=== PATIENT | male | born 1965 | race Caucasian/White ===

== ENCOUNTER → 2018-03-14 | Outpatient (CLI) | payer OTHER ==
[~2018-03-14] MED LIST: MPR22T TOP; MTF500T PO; NAPR-243 PO; OXYC-12 PO; STATIN; SULF1TAB35 PO
--- NOTE | 2018-03-14 18:04 | Diagnostic Imaging Report ---
PROCEDURE: US Bilateral lower extremity arterial. TECHNIQUE: Multiple real-time grayscale images are obtained through both lower extremity arterial systems with color Doppler imaging and color Doppler spectral analysis. INDICATION: Bilateral leg pain. FINDINGS: There are no prior studies available for comparison. There are monophasic waveforms throughout the arterial system of the right lower extremity. There is no abrupt alteration of the velocities, but the monophasic waveforms do suggest that there may be a stenosis proximal to the common femoral artery. On the left, there are elevated velocities in the common femoral arteries and profunda. Triphasic waveforms are seen in the common femoral and superficial femoral arteries, but these waveforms change to monophasic in the midportion of the superficial femoral artery. There is also significant decrease in the velocity between the common femoral and superficial femoral artery and most likely, there is a hemodynamically significant stenosis in this region. IMPRESSION: There is diminished arterial blood flow to both lower extremities. This may be related to aortoiliac disease. There also appears to be a hemodynamically significant stenosis of the superficial femoral artery on the left. If further imaging is desired, then CTA of the aorta with bilateral runoffs will be recommended. Dictated by: Dictated on workstation # [id number]
== END ==
LOC: RAD 13:49
PROVIDERS: ATTEND Internal Medicine
DX: I73.9 Peripheral vascular disease, unspecified (principal)
CPT/HCPCS: 93925

== ENCOUNTER → 2018-05-14 | Outpatient (CLI) | payer OTHER ==
[2018-05-14 13:15] LABS: ALBUMIN 4.2 GM/DL (3.2-4.5); BUN/CREATININE RATIO 14; CALCIUM 9.3 MG/DL (8.5-10.1); CARBON DIOXIDE 22 MMOL/L (21-32); CHLORIDE 101 MMOL/L (98-107); CREATININE SERUM 0.88 MG/DL (0.60-1.30); GFR ESTIMATED > 60; GLUCOSE 198 MG/DL (70-105); POTASSIUM 4.7 MMOL/L (3.6-5.0); SODIUM 135 MMOL/L (135-145)
== END ==
LOC: LAB 12:44
PROVIDERS: ATTEND Thoracic Surgery (Cardiothoracic Vascular Surgery)
DX: I70.219 Atherosclerosis of native arteries of extremities with intermittent claudication, unspecified extremity (principal)
CPT/HCPCS: 36415; 80069

== ENCOUNTER → 2018-05-15 | Outpatient (CLI) | payer OTHER ==
[~2018-05-15] MED LIST changes: +CATHETER FLUSH 10 ML SYR IV PRN; +IOHEXOL 350 MG/ML 150 ML (OMNIPAQUE 350) VIAL IV ONE; +NS 100 ML (IVPB) BAG IV ONE; +RECEIVED CONTRAST (Hold Metformin) IV SCH
--- NOTE | 2018-05-15 19:09 | Diagnostic Imaging Report ---
INDICATION: Atherosclerosis. EXAMINATION: Lung bases are clear. The liver appears normal. Gallbladder is present. Pancreas is normal. Spleen is not enlarged. Kidneys and adrenals appear normal. FINDINGS: There is calcific atherosclerosis of the aorta but no aneurysm, stenosis or dissection. Celiac and superior mesenteric arteries are widely patent. The renal arteries are widely patent. Inferior mesenteric arteries are widely patent. There is atherosclerotic calcification of the common iliac arteries and extra iliac arteries but there is no occlusion, stenosis or dissection. There is a right inguinal hernia. Urinary bladder wall appears thickened. Prostate is not enlarged. Seminal vesicles appear normal. There is no intraperitoneal free air or free fluid. Colon is unremarkable. Small bowel is not dilated. Common femoral arteries are widely patent. Profunda femora are widely patent. Superficial femoral arteries have some scattered atherosclerotic plaque but no stenosis or occlusion. Popliteal arteries are widely patent and all three runoff vessels are patent. IMPRESSION: There is some atherosclerotic change in the aorta and branches. There is no occlusion or hemodynamically significant stenosis. Dictated by: Dictated on workstation # [id number]
== END ==
LOC: RAD 16:36
PROVIDERS: ATTEND Nurse Practitioner
DX: I70.0 Atherosclerosis of aorta (principal); I70.219 Atherosclerosis of native arteries of extremities with intermittent claudication, unspecified extremity; E11.9 Type 2 diabetes mellitus without complications
CPT/HCPCS: 75635

== ENCOUNTER → 2020-01-05 | Outpatient (CLI) | payer OTHER ==
[~2020-01-05] MED LIST changes: -CATHETER FLUSH 10 ML SYR IV PRN; -IOHEXOL 350 MG/ML 150 ML (OMNIPAQUE 350) VIAL IV ONE; -NS 100 ML (IVPB) BAG IV ONE; -RECEIVED CONTRAST (Hold Metformin) IV SCH
--- NOTE | 2020-01-05 11:11 | Diagnostic Imaging Report ---
PROCEDURE: MRI lumbar spine. TECHNIQUE: Multiplanar, multisequence MRI of the lumbar spine was performed without contrast. INDICATION: Chronic low back pain with prior history of lumbar spine surgery. COMPARISON: Correlation is made with the prior MRI of the lumbar spine from 04/21/2015. FINDINGS: The curvature and alignment of the lumbar spine are normal. The vertebral body heights are maintained. The marrow signal intensity is unremarkable. No geographic marrow lesion is seen. There is degenerative disc disease at the L4-L5 level with disc space narrowing and desiccation. The remaining lumbar discs show fairly normal hydration. The conus is unremarkable at the L1 level. T12-L1: The central canal is patent. The neuroforamina are patent. L1-L2: There is some ligamentous thickening and facet change. The central canal remains widely patent. The neuroforamina are patent. L2-L3: Ligamentous thickening and facet changes are noted with a broad-based disc/osteophyte complex. The central canal is patent. There is mild bilateral neuroforaminal narrowing. L3-L4: There is some ligamentous thickening and facet change but the central canal is widely patent. The neuroforamina are patent. L4-L5: A broad-based right posterolateral disc/osteophyte complex indents the ventral thecal sac, similar to the prior exam. This does produce significant right lateral recess narrowing and also results in fairly significant right-sided neuroforaminal stenosis. The left neural foramen is patent. L5-S1: The central canal is patent. The neuroforamina are patent. IMPRESSION: L4-L5 degenerative disc disease. There continues to be a broad-based disc/osteophyte complex, asymmetric to the right, producing significant right-sided lateral recess and neuroforaminal stenosis as well as mild to moderate central canal stenosis. Dictated by: Dictated on workstation # [id number]
== END ==
LOC: RAD 09:30
PROVIDERS: ATTEND Internal Medicine
DX: M51.36 Other intervertebral disc degeneration, lumbar region (principal); M48.061 Spinal stenosis, lumbar region without neurogenic claudication
CPT/HCPCS: 72148

== ENCOUNTER → 2020-04-19 | Outpatient (CLI) | payer OTHER ==
[2020-04-19 15:28] LABS: BASOPHILS % (AUTO) 0 % (0-10); EOSINOPHILS # (AUTO) 0.3 10^3/uL (0.0-0.3); EOSINOPHILS % (AUTO) 3 % (0-10); HEMATOCRIT 42 % (40-54); HEMOGLOBIN 14.3 g/dL (13.3-17.7); LYMPHOCYTES # (AUTO) 2.8 10^3/uL (1.0-4.0); LYMPHOCYTES % (AUTO) 31 % (12-44); MEAN CORPUSCULAR HEMOGLOBIN 32 pg (25-34); MEAN CORPUSCULAR HGB CONC 34 g/dL (32-36); MEAN CORPUSCULAR VOLUME 94 fL (80-99); MEAN PLATELET VOLUME 9.8 fL (9.0-12.2); MONOCYTES # (AUTO) 0.7 10^3/uL (0.0-1.0); MONOCYTES % (AUTO) 8 % (0-12); NEUTROPHILS # (AUTO) 5.3 10^3/uL (1.8-7.8); NEUTROPHILS % (AUTO) 58 % (42-75); PLATELET COUNT 247 10^3/uL (130-400); WHITE BLOOD COUNT 9.1 10^3/uL (4.3-11.0)
[2020-04-19 15:37] LABS: ALBUMIN 4.1 GM/DL (3.2-4.5); CHLORIDE 100 MMOL/L (98-107); POTASSIUM 4.5 MMOL/L (3.6-5.0); SODIUM 136 MMOL/L (135-145)
[2020-04-19 15:39] LABS: GLUCOSE 123 MG/DL (70-105); TOTAL PROTEIN 6.8 GM/DL (6.4-8.2)
[2020-04-19 15:41] LABS: BILIRUBIN,TOTAL 0.2 MG/DL (0.1-1.0); CARBON DIOXIDE 27 MMOL/L (21-32)
[2020-04-19 15:41] LABS: BILIRUBIN,URINE NEGATIVE (NEGATIVE); CLARITY,URINE CLEAR; COLOR,URINE YELLOW; GLUCOSE, URINE (UA) NEGATIVE (NEGATIVE); KETONES,URINE NEGATIVE (NEGATIVE); LEUKOCYTE ESTERASE ,URINE 1+ (NEGATIVE); NITRITE,URINE NEGATIVE (NEGATIVE); PROTEIN,URINE NEGATIVE (NEGATIVE)
[2020-04-19 15:43] LABS: ALKALINE PHOSPHATASE 60 U/L (40-136); CREATININE SERUM 0.82 MG/DL (0.60-1.30); GFR ESTIMATED > 60
[2020-04-19 15:44] LABS: BUN/CREATININE RATIO 15
[2020-04-19 15:46] LABS: ALANINE AMINOTRANSFERASE 29 U/L (0-55)
[2020-04-19 15:54] LABS: BACTERIA,URINE TRACE /HPF
--- NOTE | 2020-04-19 16:40 | Diagnostic Imaging Report ---
EXAMINATION: Chest 2 view HISTORY: Preop clearance. COMPARISON: 07/10/2013. FINDINGS: The lung volumes are normal. No focal consolidation is seen. No large pleural effusion or pneumothorax is seen. The cardiomediastinal silhouette is normal in size and contour. No acute osseous abnormality is seen. IMPRESSION: 1. No acute pleuroparenchymal process. Dictated by: Dictated on workstation # [id number]
== END ==
LOC: CARD 15:00
PROVIDERS: ATTEND Thoracic Surgery (Cardiothoracic Vascular Surgery)
DX: Z01.810 Encounter for preprocedural cardiovascular examination (principal); I70.213 Atherosclerosis of native arteries of extremities with intermittent claudication, bilateral legs
CPT/HCPCS: 36415; 71046; 80053; 81000; 85025; 93005

== ENCOUNTER → 2021-08-23 | Outpatient (CLI) | payer MEDICAID, OTHER ==
[2021-08-23 12:16] LABS: BASOPHILS # (AUTO) 0.1 10^3/uL (0.0-0.1); BASOPHILS % (AUTO) 1 % (0-10); EOSINOPHILS # (AUTO) 0.2 10^3/uL (0.0-0.3); EOSINOPHILS % (AUTO) 2 % (0-10); HEMATOCRIT 41 % (40-54); HEMOGLOBIN 13.8 g/dL (13.3-17.7); LYMPHOCYTES # (AUTO) 3.4 10^3/uL (1.0-4.0); LYMPHOCYTES % (AUTO) 35 % (12-44); MEAN CORPUSCULAR HEMOGLOBIN 31 pg (25-34); MEAN CORPUSCULAR HGB CONC 34 g/dL (32-36); MEAN CORPUSCULAR VOLUME 93 fL (80-99); MEAN PLATELET VOLUME 9.6 fL (9.0-12.2); MONOCYTES # (AUTO) 0.8 10^3/uL (0.0-1.0); MONOCYTES % (AUTO) 8 % (0-12); NEUTROPHILS # (AUTO) 5.3 10^3/uL (1.8-7.8); NEUTROPHILS % (AUTO) 54 % (42-75); PLATELET COUNT 294 10^3/uL (130-400); WHITE BLOOD COUNT 9.8 10^3/uL (4.3-11.0)
[2021-08-23 12:20] LABS: BILIRUBIN,URINE NEGATIVE (NEGATIVE); CLARITY,URINE CLEAR; COLOR,URINE YELLOW; GLUCOSE, URINE (UA) NEGATIVE (NEGATIVE); KETONES,URINE NEGATIVE (NEGATIVE); LEUKOCYTE ESTERASE ,URINE 1+ (NEGATIVE); NITRITE,URINE NEGATIVE (NEGATIVE); PH,URINE 5.5 (5-9); PROTEIN,URINE NEGATIVE (NEGATIVE)
[2021-08-23 12:29] LABS: BACTERIA,URINE NEGATIVE /HPF; SQUAMOUS EPITHELIAL CELL,UR 0-2 /HPF; TRICHOMONAS,URINE FEW /HPF
[2021-08-23 12:35] LABS: ALBUMIN 4.2 GM/DL (3.2-4.5); POTASSIUM 4.1 MMOL/L (3.6-5.0)
[2021-08-23 12:37] LABS: CALCIUM 9.6 MG/DL (8.5-10.1)
[2021-08-23 12:38] LABS: TOTAL PROTEIN 7.2 GM/DL (6.4-8.2)
[2021-08-23 12:40] LABS: BILIRUBIN,TOTAL 0.4 MG/DL (0.1-1.0)
[2021-08-23 12:41] LABS: CREATININE SERUM 0.76 MG/DL (0.60-1.30)
== END ==
LOC: LAB 11:46
PROVIDERS: ATTEND Thoracic Surgery (Cardiothoracic Vascular Surgery)
DX: Z01.812 Encounter for preprocedural laboratory examination (principal); I70.219 Atherosclerosis of native arteries of extremities with intermittent claudication, unspecified extremity
CPT/HCPCS: 36415; 80053; 81000; 85025

== ENCOUNTER → 2021-08-26 | Outpatient (CLI) | LOC: LABNPT 08:00 → MERGE 08:00 | DX: Z53.9 Procedure and treatment not carried out, unspecified reason (principal) ==

== ENCOUNTER → 2021-08-26 | Outpatient (CLI) | payer MEDICAID | LOC: LABNPT 11:33 | PROVIDERS: ATTEND Thoracic Surgery (Cardiothoracic Vascular Surgery) | DX: Z20.822 Contact with and (suspected) exposure to COVID-19 (principal) | CPT/HCPCS: 87636 ==

== ENCOUNTER → 2022-02-06 | Outpatient (CLI) | payer MEDICAID ==
--- NOTE | 2022-02-06 18:16 | Diagnostic Imaging Report ---
PROCEDURE: US Bilateral lower extremity arterial. TECHNIQUE: Multiple real-time grayscale images are obtained through both lower extremity arterial systems with color Doppler imaging and color Doppler spectral analysis. INDICATION: Atherosclerotic disease of the lower extremities. COMPARISON: 03/14/2018 FINDINGS: Right lower extremity arterial system: There is primarily monophasic flow from the common femoral through to the popliteal artery. Several areas of diminished peak systolic velocity are also present. Despite this, grayscale and color flow images show no areas of focal hemodynamically significant stenosis by NASCET criteria. Monophasic flow is also identified throughout the right calf arteries. Proximal anterior tibial artery is not well visualized. Its patency cannot be confirmed. Left lower extremity arterial system: There is triphasic waveform from the common femoral through to the popliteal artery. Scattered echogenic atherosclerotic disease is noted, but by NASCET criteria, there is no focal significant stenosis. Proximal posterior tibial artery is also not well-visualized on the left. There is otherwise primarily monophasic flow within the left calf arteries. Note is also made of arrhythmia. IMPRESSION: 1. There is predominant monophasic flow in the right lower extremity arterial system. While this may relate to moderate diffuse atherosclerotic disease, obscuring the stenosis within the right common or external iliac arteries show also be a consideration. Correlation with CT or conventional angiogram is advised. 2. No evidence of focal significant stenosis from the common femoral to the popliteal arteries on either side. 3. Probable small vessel disease of the bilateral calves. 4. Arrhythmia. Dictated by: Dictated on workstation # [id number]
== END ==
LOC: RAD 10:45
PROVIDERS: ATTEND Nurse Practitioner
DX: I49.9 Cardiac arrhythmia, unspecified (principal); I70.213 Atherosclerosis of native arteries of extremities with intermittent claudication, bilateral legs
CPT/HCPCS: 93925

== ENCOUNTER → 2022-06-19 | Outpatient (CLI) | payer MEDICAID ==
[2022-06-19 11:44] LABS: BASOPHILS % (AUTO) 0 % (0-10); EOSINOPHILS # (AUTO) 0.2 10^3/uL (0.0-0.3); EOSINOPHILS % (AUTO) 2 % (0-10); HEMATOCRIT 39 % (40-54); HEMOGLOBIN 12.9 g/dL (13.3-17.7); LYMPHOCYTES # (AUTO) 2.3 10^3/uL (1.0-4.0); LYMPHOCYTES % (AUTO) 20 % (12-44); MEAN CORPUSCULAR HEMOGLOBIN 31 pg (25-34); MEAN CORPUSCULAR HGB CONC 33 g/dL (32-36); MEAN CORPUSCULAR VOLUME 92 fL (80-99); MEAN PLATELET VOLUME 10.3 fL (9.0-12.2); MONOCYTES # (AUTO) 0.9 10^3/uL (0.0-1.0); MONOCYTES % (AUTO) 8 % (0-12); NEUTROPHILS % (AUTO) 70 % (42-75); PLATELET COUNT 256 10^3/uL (130-400); WHITE BLOOD COUNT 11.5 10^3/uL (4.3-11.0)
[2022-06-19 12:00] LABS: ALBUMIN 4.1 GM/DL (3.2-4.5); BILIRUBIN,TOTAL 0.4 MG/DL (0.1-1.0); CALCIUM 9.7 MG/DL (8.5-10.1); CREATININE SERUM 0.83 MG/DL (0.60-1.30); POTASSIUM 4.3 MMOL/L (3.6-5.0); TOTAL PROTEIN 7.5 GM/DL (6.4-8.2)
[2022-06-19 12:06] LABS: ERYTHROCYTE SEDIMENTATION RATE 22 MM/HR (0-30)
== END ==
LOC: WOUNDCARE 10:12
PROVIDERS: ATTEND Family Medicine
DX: E11.621 Type 2 diabetes mellitus with foot ulcer (principal); E11.65 Type 2 diabetes mellitus with hyperglycemia; E11.40 Type 2 diabetes mellitus with diabetic neuropathy, unspecified; L97.422 Non-pressure chronic ulcer of left heel and midfoot with fat layer exposed; L03.116 Cellulitis of left lower limb; I70.244 Atherosclerosis of native arteries of left leg with ulceration of heel and midfoot; T65.292A Toxic effect of other tobacco and nicotine, intentional self-harm, initial encounter; I89.0 Lymphedema, not elsewhere classified; E66.01 Morbid (severe) obesity due to excess calories; Z68.39 Body mass index [BMI] 39.0-39.9, adult
CPT/HCPCS: 11042; 11045; 80053; 85025; 85652; 86141; 87070; 87077; 87205; A6260; G0463; 36415; 87185

== ENCOUNTER → 2022-07-03 | Outpatient (CLI) | payer MEDICAID ==
--- NOTE | 2022-07-03 17:35 | Diagnostic Imaging Report ---
HISTORY: Osteomyelitis of the left heel TECHNIQUE: Two views of the left calcaneus. COMPARISON: None. FINDINGS: There is a moderate-sized plantar calcaneal enthesophyte and a small posterior calcaneal enthesophyte. No acute fracture is seen in the calcaneus. Alignment is normal. Joint space is preserved. There is subtle cortical indistinction at the posterolateral aspect of the calcaneus. IMPRESSION: 1. Subtle cortical indistinction at the posterolateral calcaneus, could represent osteomyelitis. Please correlate with clinical findings, and if indicated consider MRI. Dictated by: Dictated on workstation # [id number]
== END ==
LOC: WOUNDCARE 09:31
PROVIDERS: ATTEND Family Medicine
DX: L97.422 Non-pressure chronic ulcer of left heel and midfoot with fat layer exposed (principal); E11.621 Type 2 diabetes mellitus with foot ulcer; E11.65 Type 2 diabetes mellitus with hyperglycemia; E11.40 Type 2 diabetes mellitus with diabetic neuropathy, unspecified; I70.244 Atherosclerosis of native arteries of left leg with ulceration of heel and midfoot; T65.292A Toxic effect of other tobacco and nicotine, intentional self-harm, initial encounter; I89.0 Lymphedema, not elsewhere classified; E66.01 Morbid (severe) obesity due to excess calories; A49.9 Bacterial infection, unspecified; E11.52 Type 2 diabetes mellitus with diabetic peripheral angiopathy with gangrene; Z68.39 Body mass index [BMI] 39.0-39.9, adult
CPT/HCPCS: 73650; G0463; 99212

== ENCOUNTER → 2022-07-10 | Outpatient (CLI) | payer MEDICAID | LOC: WOUNDCARE 09:29 | PROVIDERS: ATTEND Family Medicine | DX: E11.621 Type 2 diabetes mellitus with foot ulcer (principal); E11.65 Type 2 diabetes mellitus with hyperglycemia; E11.40 Type 2 diabetes mellitus with diabetic neuropathy, unspecified; I70.244 Atherosclerosis of native arteries of left leg with ulceration of heel and midfoot; T65.222A Toxic effect of tobacco cigarettes, intentional self-harm, initial encounter; I89.0 Lymphedema, not elsewhere classified; L97.422 Non-pressure chronic ulcer of left heel and midfoot with fat layer exposed; E66.01 Morbid (severe) obesity due to excess calories; Z68.39 Body mass index [BMI] 39.0-39.9, adult; A49.9 Bacterial infection, unspecified; E11.52 Type 2 diabetes mellitus with diabetic peripheral angiopathy with gangrene | CPT/HCPCS: 11042; 87070; 87205; A6260; G0463 ==

== ENCOUNTER → 2022-07-14 | Outpatient (CLI) | payer MEDICAID ==
[~2022-07-14] MED LIST changes: +GADOTERATE 0.5 MMOL/ML (CLARISCAN) 20 ML VIAL IV ONE; +GADOTERATE 0.5 MMOL/ML (CLARISCAN) 5 ML VIAL IV ONE
--- NOTE | 2022-07-14 10:05 | Diagnostic Imaging Report ---
EXAMINATION: Magnetic resonance imaging of the left ankle without and with intravenous contrast. DATE: July 14, 2022. COMPARISON: None. HISTORY: 56-year-old male, ulcer at the posterior aspect of the left heel. Evaluation for osteomyelitis and/or abscess. TECHNIQUE: Magnetic Resonance Imaging sequences were performed of the ankle without and with intravenous contrast. FINDINGS: TENDONS AND LIGAMENTS: The Achilles tendon is unremarkable. The posterior flexor tendons - tibialis posterior, flexor digitorum longus, flexor hallucis longus - are intact. The peroneal tendons - peroneus longus and peroneus brevis - are intact. The anterior extensor tendons - tibialis anterior, extensor hallucis longus and extensor digitorum longus tendons - are intact. The anterior and posterior syndesmotic ligaments are intact. The anterior talofibular, posterior talofibular, calcaneofibular and deltoid ligaments are intact. The plantar fascia is intact. JOINTS: The ankle mortise is intact. The subtalar and visualized joints of the mid-foot are intact. BONE: There is a type II os navicularis without evidence of abnormal motion. There is minimal edema-like signal in the subcortical bone of the posterior calcaneus without T1 marrow signal loss or bone destruction. There is additional low level edema in the calcaneus which may relate to stress related marrow changes. There is a visible fracture line. The talar dome is intact. BURSAE AND SOFT TISSUES: There is a large area of nonenhancing soft tissue superficial to the posterior aspect of the calcaneus with a craniocaudal extent of 6.4 cm, anterior to posterior extent of 2.0 cm, and a transverse extent of approximately 3.8 cm. This may relate to devascularized or devitalized tissue. The nonenhancing tissue does directly contact bone. There is minimal subcortical edema in the posterior calcaneus. There is no identified focal fluid collection or abscess. IMPRESSION: 1. Large area of nonenhancing subcutaneous tissues superficial to the posterior calcaneus which may relate to devascularize or devitalized tissue. No identified focal fluid collection or abscess. 2. Mild subcortical edema in the posterior calcaneus without T1 marrow signal loss or bone destruction to specifically diagnose osteomyelitis at this time. 3. Intact tendons without evidence of tenosynovitis. 4. Unremarkable joint assessment. Dictated by: Dictated on workstation # [id number]
== END ==
LOC: RAD 08:45
PROVIDERS: ATTEND Family Medicine
DX: L97.422 Non-pressure chronic ulcer of left heel and midfoot with fat layer exposed (principal); E11.621 Type 2 diabetes mellitus with foot ulcer; E11.65 Type 2 diabetes mellitus with hyperglycemia; E11.40 Type 2 diabetes mellitus with diabetic neuropathy, unspecified; L03.116 Cellulitis of left lower limb; I70.244 Atherosclerosis of native arteries of left leg with ulceration of heel and midfoot; T65.292A Toxic effect of other tobacco and nicotine, intentional self-harm, initial encounter; I89.0 Lymphedema, not elsewhere classified; E66.01 Morbid (severe) obesity due to excess calories; Z68.39 Body mass index [BMI] 39.0-39.9, adult
CPT/HCPCS: 73720

== ENCOUNTER → 2022-07-17 | Outpatient (CLI) | payer MEDICAID ==
[~2022-07-17] MED LIST changes: -GADOTERATE 0.5 MMOL/ML (CLARISCAN) 20 ML VIAL IV ONE; -GADOTERATE 0.5 MMOL/ML (CLARISCAN) 5 ML VIAL IV ONE
== END ==
LOC: WOUNDCARE 09:19
PROVIDERS: ATTEND Family Medicine
DX: L97.422 Non-pressure chronic ulcer of left heel and midfoot with fat layer exposed (principal); E11.621 Type 2 diabetes mellitus with foot ulcer; E11.65 Type 2 diabetes mellitus with hyperglycemia; E11.40 Type 2 diabetes mellitus with diabetic neuropathy, unspecified; I70.244 Atherosclerosis of native arteries of left leg with ulceration of heel and midfoot; T65.292A Toxic effect of other tobacco and nicotine, intentional self-harm, initial encounter; I89.0 Lymphedema, not elsewhere classified; E66.01 Morbid (severe) obesity due to excess calories; Z68.39 Body mass index [BMI] 39.0-39.9, adult; A49.9 Bacterial infection, unspecified; E11.52 Type 2 diabetes mellitus with diabetic peripheral angiopathy with gangrene
CPT/HCPCS: A6260; G0463; 99212

== ENCOUNTER 2022-07-20 12:20 | Outpatient (CLI) | payer MEDICAID ==
[~2022-07-20] VITALS: Ht 185.4 cm; Wt 130.6 kg
[2022-07-20] MEDS ORDERED: INSU100I55 SQ (12:58)
[2022-07-20] MEDS ORDERED: LISI20TA26 PO (13:32)
[2022-07-20] MEDS ORDERED: GLIP5TAB13 PO (13:32)
[2022-07-20] MEDS ORDERED: BACL20TA PO (13:32)
[2022-07-20] MEDS ORDERED: FURO40TA4 PO (13:32)
[2022-07-20] MEDS ORDERED: PROM25TA14 PO (13:32)
[2022-07-20] MEDS ORDERED: OXYC-556 PO (13:32)
[2022-07-20] MEDS ORDERED: ATOR40TA70 PO (13:32)
[2022-07-20] MEDS ORDERED: INSU100I88 SQ (13:32)
[2022-07-20] MEDS ORDERED: ROPI1TAB PO (13:32)
[2022-07-20] MEDS ORDERED: LIRA0.6P SQ (13:32)
[2022-07-20] MEDS ORDERED: LEVO750T PO (13:32)
[2022-07-20] MEDS ORDERED: POTA-177 PO (13:32)
[2022-07-20] MEDS ORDERED: CLOP75TA28 PO (13:32)
[2022-07-20] MEDS ORDERED: PREG150C46 PO (13:32)
== END 2022-07-20 13:41 | disposition home or self-care (01) ==
LOC: PREOP 12:20
PROVIDERS: ATTEND Surgery
DX: Z01.818 Encounter for other preprocedural examination (principal); E11.621 Type 2 diabetes mellitus with foot ulcer

== ENCOUNTER 2022-07-24 10:38 | Day surgery (SDC) | payer MEDICAID ==
[~2022-07-24] VITALS: Ht 185.4 cm; Wt 130.6 kg
[2022-07-24] VITALS (11 sets, daily range): BP systolic 113–140; BP diastolic 64–84
[~2022-07-24 10:38] MED LIST changes: +ATOR40TA70 PO; +BACL20TA PO; +CLOP75TA28 PO; +FURO40TA4 PO; +GLIP5TAB13 PO; +INSU100I55 SQ; +INSU100I88 SQ; +LEVO750T PO; +LIRA0.6P SQ; +LISI20TA26 PO; +OXYC-556 PO; +POTA-177 PO; +PREG150C46 PO; +PROM25TA14 PO; +ROPI1TAB PO
[2022-07-24] MEDS ORDERED: ceFAZolin INJECTION 2,000 MG in NS (IVPB) 50 ML IV ONE (10:45)
[2022-07-24] MEDS ORDERED: LACTATED RINGERS 1,000 ML IV PRN (10:45)
--- NOTE | 2022-07-24 11:28 | Progress Note-Pre Operative ---
Pre-Operative Progress Note Date H&P Reviewed: Jul 24, 2022 Time H&P Reviewed: 11:27 History & Physical: H&P Reviewed, Patient Examed, No changes noted Pre-Operative Diagnosis: LEFT HEEL/FOOT ULCER ABENA VERDUZCO DO Jul 24, 2022 11:28
[2022-07-24] MEDS ORDERED: proPOfol 200 MG/20 ML (DIPRIVAN) VIAL IV ONE (11:43)
[2022-07-24] MEDS ORDERED: LIDOCAINE PF 2% 5 ML (XYLOCAINE) VIAL ONE (11:43)
[2022-07-24] MEDS ORDERED: fentaNYL INJ 100 MCG/2 ML AMP ONE (11:43)
[2022-07-24] MEDS ORDERED: MIDAZOLAM 2 MG/2 ML (VERSED) VIAL ONE (11:44)
[2022-07-24] MEDS ORDERED: ONDANSETRON 4 MG/2 ML (SDV) Z0FRAN ONE (11:57)
[2022-07-24] MEDS ORDERED: SEVOFLURANE (ULTANE) 15 ML INHAL SOLN ONE (12:18)
[2022-07-24] MEDS ORDERED: ONDANSETRON 4 MG/2 ML (SDV) Z0FRAN IVP PRN (12:30)
[2022-07-24] MEDS ORDERED: fentaNYL INJ 100 MCG/2 ML AMP IVP ONE (12:30)
--- NOTE | 2022-07-24 12:30 | Anesthesia-General Post-Op ---
General Patient Condition Mental Status/LOC: Same as Preop Cardiovascular: Satisfactory Nausea/Vomiting: Absent Respiratory: Satisfactory Pain: Controlled Complications: Absent Post Op Complications Complications None Follow Up Care/Instructions Patient Instructions None needed. Anesthesia/Patient Condition Patient Condition Patient is doing well, no complaints, stable vital signs, no apparent adverse anesthesia problems. No complications reported per nursing. TOMMY REARDON CRNA Jul 24, 2022 12:30
--- NOTE | 2022-07-24 12:46 | Discharge Inst-Simple/Standard ---
Discharge Inst-Standard Patient Instructions/Follow Up Plan of Care/Instructions/FU: Tomorrow Jyoti Montes 2 weeks. Wound care appointment Activity as Tolerated: No Discharge Diet: Regular Diet Other Inst to Patient Follow up Appt: Make appointment for Dr Jyoti hong tomorrow. Dr. Montes in 2 week. Wound care appointment Instructions: No strenuous activity. May shower in 24 hours, no tub bath or soaking. Use incentive spirometer at home as directed. No Smoking Skin/Wound Care: Need to irrigate and pack wound daily. Symptoms to Report: Appetite Changes, Extremity Discoloration, Numbness/Tingling, Swelling Increased, Bleeding Excessive, Eyesight Changes, Pain Increased, Urine Color Breanna nge, Constipation(Persistent), Fever over 101 degree F, Pain/Pressure in chest, Urinating Difficulty, Cough Up/Vomit Blood, Heart Beat Irreg/Pounding, Pain/Pressure in jaw, Vaginal Bleeding Increase, Cramps in feet or legs, Lightheadedness, Pain/Pressure in shoulder, Diarrhea(Persistent), Memory Changes Suddenly, Questions/Concerns, Weight gain consecutive days, Dizziness/Fainting, Nausea/Vomiting, Shortness of Breath, Weight gain over 2 pounds If questions or concerns contact your physician Or seek help at emergency department. ABENA MONTES DO Jul 24, 2022 12:46
--- NOTE | 2022-07-24 12:48 | Progress Note-Post Operative ---
Post-Operative Progess Note Surgeon (s)/Vest Busheler (s) Surgeon ABENA VERDUZCO DO Vest Busheler: na Pre-Operative Diagnosis LEFT HEEL/FOOT ULCER Post-Operative Diagnosis Necrotic foot/heel ulcer- left Procedure & Operative Findings Date of Procedure 07/24/22 Procedure Performed/Findings Sharp and cautery debridement left foot/heel ulcer removing necrotic skin,subcutaneous tissue and muscle. Anesthesia Type general Estimated Blood Loss Estimated blood loss (mL): minimal Specimens/Packing Specimens Removed culture ABENA VERDUZCO DO Jul 24, 2022 12:48
--- NOTE | 2022-07-24 23:01 | OPERATIVE REPORT ---
DATE OF SERVICE: 07/24/2022 PREOPERATIVE DIAGNOSIS: Left heel/foot ulcer. POSTOPERATIVE DIAGNOSIS: Left heel/foot ulcer with necrotic tissue. SURGEON: Abena Montes DO ANESTHESIA: General. ESTIMATED BLOOD LOSS: Minimal. COMPLICATIONS: None. INDICATIONS: The patient is a 56-year-old male with a left foot wound. He has necrotic tissue to the area. He was needing debridement. He understands risks and benefits of procedure and wishes to proceed. Consent was signed in chart. DESCRIPTION OF PROCEDURE: The patient was taken to the operating suite where he was prepped and draped in sterile fashion. Timeout was performed. A #15 blade scalpel was used to cut through the necrotic tissue at the left heel, which started removing skin, subcutaneous tissue and muscle that was all necrotic. Sharp and cautery debridement was used to clean all this tissue out achieving hemostasis and down to viable-appearing tissue. Overall, dimensions were 4.5 x 5.8 cm. The wound was then irrigated with copious amounts of irrigation. Hemostasis was achieved. The wound was then packed and sterile bandage with Kerlix soaked in Betadine. The area then had sterile bandage applied. The patient tolerated the procedure well without any complications, taken to recovery room in stable condition. RECOMMENDATIONS: The patient will have a dressing change tomorrow in the office. Could possibly need further debridement depending on overall appearance of the tissue. He is to continue to follow up with Vascular at his next scheduled appointment for possible further intervention. Job ID: [id number] DocumentID: [id number] Dictated Date: 07/24/2022 18:06:46 Ore Roaster Date: 07/24/2022 22:59:00 Dictated By: ABENA MONTES DO
== END 2022-07-24 14:50 | disposition home or self-care (01) ==
LOC: SDC 10:38
PROVIDERS: ATTEND Surgery
DX: E11.621 Type 2 diabetes mellitus with foot ulcer (principal); L89.629 Pressure ulcer of left heel, unspecified stage; G47.33 Obstructive sleep apnea (adult) (pediatric); F17.210 Nicotine dependence, cigarettes, uncomplicated; Z99.81 Dependence on supplemental oxygen; Z79.84 Long term (current) use of oral hypoglycemic drugs
CPT/HCPCS: 82947; 87070; 87075; 87081; 87101; 87205

== ENCOUNTER → 2022-08-02 | Outpatient (CLI) | payer MEDICAID | LOC: WOUNDCARE 12:51 | PROVIDERS: ATTEND Family Medicine | DX: L97.422 Non-pressure chronic ulcer of left heel and midfoot with fat layer exposed (principal); E11.621 Type 2 diabetes mellitus with foot ulcer; E11.65 Type 2 diabetes mellitus with hyperglycemia; E11.40 Type 2 diabetes mellitus with diabetic neuropathy, unspecified; I70.244 Atherosclerosis of native arteries of left leg with ulceration of heel and midfoot; T65.292A Toxic effect of other tobacco and nicotine, intentional self-harm, initial encounter; I89.0 Lymphedema, not elsewhere classified; E11.52 Type 2 diabetes mellitus with diabetic peripheral angiopathy with gangrene; E66.01 Morbid (severe) obesity due to excess calories; Z68.39 Body mass index [BMI] 39.0-39.9, adult | CPT/HCPCS: 11043; 11046; 83036; 84134; 87070; 87205; G0463; 36415 ==

== ENCOUNTER → 2022-08-10 | Outpatient (CLI) | payer MEDICAID | LOC: WOUNDCARE 14:36 | PROVIDERS: ATTEND Family Medicine | DX: L97.422 Non-pressure chronic ulcer of left heel and midfoot with fat layer exposed (principal); E11.621 Type 2 diabetes mellitus with foot ulcer; E11.65 Type 2 diabetes mellitus with hyperglycemia; E11.40 Type 2 diabetes mellitus with diabetic neuropathy, unspecified; I70.244 Atherosclerosis of native arteries of left leg with ulceration of heel and midfoot; T65.292A Toxic effect of other tobacco and nicotine, intentional self-harm, initial encounter; I89.0 Lymphedema, not elsewhere classified; E66.01 Morbid (severe) obesity due to excess calories; E11.52 Type 2 diabetes mellitus with diabetic peripheral angiopathy with gangrene; Z68.39 Body mass index [BMI] 39.0-39.9, adult | CPT/HCPCS: 11042; G0463 ==

== ENCOUNTER → 2022-08-24 | Outpatient (CLI) | payer MEDICAID | LOC: WOUNDCARE 14:11 | PROVIDERS: ATTEND Family Medicine | DX: L97.422 Non-pressure chronic ulcer of left heel and midfoot with fat layer exposed (principal); E11.621 Type 2 diabetes mellitus with foot ulcer; E11.65 Type 2 diabetes mellitus with hyperglycemia; E11.40 Type 2 diabetes mellitus with diabetic neuropathy, unspecified; I70.244 Atherosclerosis of native arteries of left leg with ulceration of heel and midfoot; T65.292A Toxic effect of other tobacco and nicotine, intentional self-harm, initial encounter; I89.0 Lymphedema, not elsewhere classified; E66.01 Morbid (severe) obesity due to excess calories; Z68.39 Body mass index [BMI] 39.0-39.9, adult; E11.52 Type 2 diabetes mellitus with diabetic peripheral angiopathy with gangrene; I96 Gangrene, not elsewhere classified | CPT/HCPCS: 11043; 87070; 87205; G0463; 87077 ==

== ENCOUNTER → 2022-08-31 | Outpatient (CLI) | payer MEDICAID | LOC: WOUNDCARE 14:13 | PROVIDERS: ATTEND Family Medicine | DX: I96 Gangrene, not elsewhere classified (principal); L97.422 Non-pressure chronic ulcer of left heel and midfoot with fat layer exposed; E11.621 Type 2 diabetes mellitus with foot ulcer; E11.65 Type 2 diabetes mellitus with hyperglycemia; E11.40 Type 2 diabetes mellitus with diabetic neuropathy, unspecified; I70.244 Atherosclerosis of native arteries of left leg with ulceration of heel and midfoot; I89.0 Lymphedema, not elsewhere classified; E66.01 Morbid (severe) obesity due to excess calories; T65.292A Toxic effect of other tobacco and nicotine, intentional self-harm, initial encounter; E11.52 Type 2 diabetes mellitus with diabetic peripheral angiopathy with gangrene; Z68.39 Body mass index [BMI] 39.0-39.9, adult | CPT/HCPCS: 11042; G0463 ==

== ENCOUNTER → 2022-09-06 | Outpatient (CLI) | payer MEDICAID ==
[2022-09-06 11:30] LABS: BASOPHILS # (AUTO) 0.1 10^3/uL (0.0-0.1); BASOPHILS % (AUTO) 1 % (0-10); EOSINOPHILS # (AUTO) 0.3 10^3/uL (0.0-0.3); EOSINOPHILS % (AUTO) 3 % (0-10); HEMATOCRIT 38 % (40-54); HEMOGLOBIN 12.8 g/dL (13.3-17.7); LYMPHOCYTES # (AUTO) 3.4 10^3/uL (1.0-4.0); LYMPHOCYTES % (AUTO) 31 % (12-44); MEAN CORPUSCULAR HEMOGLOBIN 29 pg (25-34); MEAN CORPUSCULAR HGB CONC 34 g/dL (32-36); MEAN CORPUSCULAR VOLUME 87 fL (80-99); MEAN PLATELET VOLUME 10.7 fL (9.0-12.2); MONOCYTES # (AUTO) 0.7 10^3/uL (0.0-1.0); MONOCYTES % (AUTO) 6 % (0-12); NEUTROPHILS # (AUTO) 6.3 10^3/uL (1.8-7.8); NEUTROPHILS % (AUTO) 59 % (42-75); PLATELET COUNT 258 10^3/uL (130-400); WHITE BLOOD COUNT 10.7 10^3/uL (4.3-11.0)
[2022-09-06 11:35] LABS: BILIRUBIN,URINE NEGATIVE (NEGATIVE); CLARITY,URINE CLEAR; COLOR,URINE YELLOW; GLUCOSE, URINE (UA) 2+ (NEGATIVE); KETONES,URINE NEGATIVE (NEGATIVE); LEUKOCYTE ESTERASE ,URINE NEGATIVE (NEGATIVE); NITRITE,URINE NEGATIVE (NEGATIVE); PH,URINE 5.5 (5-9); PROTEIN,URINE NEGATIVE (NEGATIVE)
[2022-09-06 11:49] LABS: BACTERIA,URINE NEGATIVE /HPF; SQUAMOUS EPITHELIAL CELL,UR RARE /HPF
[2022-09-06 11:50] LABS: BILIRUBIN,TOTAL 0.4 MG/DL (0.1-1.0); CALCIUM 9.4 MG/DL (8.5-10.1); CREATININE SERUM 0.93 MG/DL (0.60-1.30); POTASSIUM 4.5 MMOL/L (3.6-5.0); TOTAL PROTEIN 6.9 GM/DL (6.4-8.2)
--- NOTE | 2022-09-06 11:57 | Diagnostic Imaging Report ---
INDICATION: Pain. FINDINGS: Lungs are clear. No failure, effusion, or pneumothorax. IMPRESSION: No acute appearing abnormality. Dictated by: Dictated on workstation # [id number]
== END ==
LOC: CARD 11:09
PROVIDERS: ATTEND Thoracic Surgery (Cardiothoracic Vascular Surgery)
DX: Z01.810 Encounter for preprocedural cardiovascular examination (principal); I70.213 Atherosclerosis of native arteries of extremities with intermittent claudication, bilateral legs
CPT/HCPCS: 36415; 71046; 80053; 81000; 83036; 85025; 93005

== ENCOUNTER → 2022-09-06 | Outpatient (CLI) | payer MEDICAID | LOC: WOUNDCARE 10:09 | PROVIDERS: ATTEND Family Medicine | DX: E11.621 Type 2 diabetes mellitus with foot ulcer (principal); L97.422 Non-pressure chronic ulcer of left heel and midfoot with fat layer exposed; E11.65 Type 2 diabetes mellitus with hyperglycemia; E11.40 Type 2 diabetes mellitus with diabetic neuropathy, unspecified; I70.244 Atherosclerosis of native arteries of left leg with ulceration of heel and midfoot; T65.292A Toxic effect of other tobacco and nicotine, intentional self-harm, initial encounter; I89.0 Lymphedema, not elsewhere classified; E44.0 Moderate protein-calorie malnutrition; E66.01 Morbid (severe) obesity due to excess calories; Z68.39 Body mass index [BMI] 39.0-39.9, adult; E11.52 Type 2 diabetes mellitus with diabetic peripheral angiopathy with gangrene | CPT/HCPCS: 11042; G0463 ==

== ENCOUNTER → 2022-09-20 | Outpatient (CLI) | payer MEDICAID | LOC: WOUNDCARE 13:57 | PROVIDERS: ATTEND Family Medicine | DX: E11.621 Type 2 diabetes mellitus with foot ulcer (principal); L97.422 Non-pressure chronic ulcer of left heel and midfoot with fat layer exposed; E11.65 Type 2 diabetes mellitus with hyperglycemia; E11.40 Type 2 diabetes mellitus with diabetic neuropathy, unspecified; I70.244 Atherosclerosis of native arteries of left leg with ulceration of heel and midfoot; T65.292A Toxic effect of other tobacco and nicotine, intentional self-harm, initial encounter; I89.0 Lymphedema, not elsewhere classified; E66.01 Morbid (severe) obesity due to excess calories; Z68.39 Body mass index [BMI] 39.0-39.9, adult; E11.52 Type 2 diabetes mellitus with diabetic peripheral angiopathy with gangrene | CPT/HCPCS: 11042; 87070; 87205; A6197; G0463; 87077 ==

== ENCOUNTER → 2022-09-27 | Outpatient (CLI) | payer MEDICAID | LOC: WOUNDCARE 12:43 | PROVIDERS: ATTEND Family Medicine | DX: L97.422 Non-pressure chronic ulcer of left heel and midfoot with fat layer exposed (principal); E11.621 Type 2 diabetes mellitus with foot ulcer; E11.65 Type 2 diabetes mellitus with hyperglycemia; E11.40 Type 2 diabetes mellitus with diabetic neuropathy, unspecified; I70.244 Atherosclerosis of native arteries of left leg with ulceration of heel and midfoot; T65.292A Toxic effect of other tobacco and nicotine, intentional self-harm, initial encounter; I89.0 Lymphedema, not elsewhere classified; E66.01 Morbid (severe) obesity due to excess calories; E11.52 Type 2 diabetes mellitus with diabetic peripheral angiopathy with gangrene; Z68.39 Body mass index [BMI] 39.0-39.9, adult | CPT/HCPCS: 11042; G0463 ==

== ENCOUNTER → 2022-10-04 | Outpatient (CLI) | payer MEDICAID | LOC: WOUNDCARE 13:02 | PROVIDERS: ATTEND Family Medicine | DX: T22.311A Burn of third degree of right forearm, initial encounter (principal); E11.621 Type 2 diabetes mellitus with foot ulcer; E11.65 Type 2 diabetes mellitus with hyperglycemia; E11.40 Type 2 diabetes mellitus with diabetic neuropathy, unspecified; E11.52 Type 2 diabetes mellitus with diabetic peripheral angiopathy with gangrene; L97.422 Non-pressure chronic ulcer of left heel and midfoot with fat layer exposed; I70.244 Atherosclerosis of native arteries of left leg with ulceration of heel and midfoot; T65.292A Toxic effect of other tobacco and nicotine, intentional self-harm, initial encounter; I89.0 Lymphedema, not elsewhere classified; E66.01 Morbid (severe) obesity due to excess calories; T31.0 Burns involving less than 10% of body surface; Z68.39 Body mass index [BMI] 39.0-39.9, adult | CPT/HCPCS: 11042; 16020; G0463 ==

== ENCOUNTER → 2022-10-11 | Outpatient (CLI) | payer MEDICAID | LOC: WOUNDCARE 10:29 | PROVIDERS: ATTEND Family Medicine | DX: E11.621 Type 2 diabetes mellitus with foot ulcer (principal); L97.422 Non-pressure chronic ulcer of left heel and midfoot with fat layer exposed; E11.65 Type 2 diabetes mellitus with hyperglycemia; E11.40 Type 2 diabetes mellitus with diabetic neuropathy, unspecified; I89.0 Lymphedema, not elsewhere classified; E66.01 Morbid (severe) obesity due to excess calories; E11.52 Type 2 diabetes mellitus with diabetic peripheral angiopathy with gangrene; I70.244 Atherosclerosis of native arteries of left leg with ulceration of heel and midfoot; T65.292A Toxic effect of other tobacco and nicotine, intentional self-harm, initial encounter; Z68.39 Body mass index [BMI] 39.0-39.9, adult | CPT/HCPCS: 11042; G0463 ==

== ENCOUNTER → 2022-10-18 | Outpatient (CLI) | payer MEDICARE, MEDICAID | LOC: WOUNDCARE 10:29 | PROVIDERS: ATTEND Family Medicine | DX: E11.621 Type 2 diabetes mellitus with foot ulcer (principal); E11.65 Type 2 diabetes mellitus with hyperglycemia; E11.40 Type 2 diabetes mellitus with diabetic neuropathy, unspecified; L97.422 Non-pressure chronic ulcer of left heel and midfoot with fat layer exposed; I70.244 Atherosclerosis of native arteries of left leg with ulceration of heel and midfoot; T65.292A Toxic effect of other tobacco and nicotine, intentional self-harm, initial encounter; I89.0 Lymphedema, not elsewhere classified; E66.01 Morbid (severe) obesity due to excess calories; Z68.39 Body mass index [BMI] 39.0-39.9, adult; E11.52 Type 2 diabetes mellitus with diabetic peripheral angiopathy with gangrene | CPT/HCPCS: 11042; G0463 ==

== ENCOUNTER → 2022-10-25 | Outpatient (CLI) | payer MEDICARE, MEDICAID | LOC: WOUNDCARE 10:59 | PROVIDERS: ATTEND Family Medicine | DX: I70.244 Atherosclerosis of native arteries of left leg with ulceration of heel and midfoot (principal); L97.422 Non-pressure chronic ulcer of left heel and midfoot with fat layer exposed; E11.621 Type 2 diabetes mellitus with foot ulcer; E11.65 Type 2 diabetes mellitus with hyperglycemia; E11.40 Type 2 diabetes mellitus with diabetic neuropathy, unspecified; T65.292A Toxic effect of other tobacco and nicotine, intentional self-harm, initial encounter; I89.0 Lymphedema, not elsewhere classified; E66.01 Morbid (severe) obesity due to excess calories; E11.52 Type 2 diabetes mellitus with diabetic peripheral angiopathy with gangrene; Z68.39 Body mass index [BMI] 39.0-39.9, adult | CPT/HCPCS: 11042; G0463 ==

== ENCOUNTER → 2022-11-08 | Outpatient (CLI) | payer MEDICARE, MEDICAID | LOC: WOUNDCARE 11:26 | PROVIDERS: ATTEND Family Medicine | DX: L97.422 Non-pressure chronic ulcer of left heel and midfoot with fat layer exposed (principal); E11.621 Type 2 diabetes mellitus with foot ulcer; E11.65 Type 2 diabetes mellitus with hyperglycemia; E11.40 Type 2 diabetes mellitus with diabetic neuropathy, unspecified; I70.244 Atherosclerosis of native arteries of left leg with ulceration of heel and midfoot; T65.292A Toxic effect of other tobacco and nicotine, intentional self-harm, initial encounter; I89.0 Lymphedema, not elsewhere classified; E66.01 Morbid (severe) obesity due to excess calories; E11.52 Type 2 diabetes mellitus with diabetic peripheral angiopathy with gangrene; Z68.39 Body mass index [BMI] 39.0-39.9, adult | CPT/HCPCS: 11042; G0463 ==

== ENCOUNTER → 2022-11-15 | Outpatient (CLI) | payer MEDICARE, MEDICAID | LOC: WOUNDCARE 11:25 | PROVIDERS: ATTEND Family Medicine | DX: E11.621 Type 2 diabetes mellitus with foot ulcer (principal); L97.422 Non-pressure chronic ulcer of left heel and midfoot with fat layer exposed; E11.65 Type 2 diabetes mellitus with hyperglycemia; E11.40 Type 2 diabetes mellitus with diabetic neuropathy, unspecified; I70.244 Atherosclerosis of native arteries of left leg with ulceration of heel and midfoot; T65.292A Toxic effect of other tobacco and nicotine, intentional self-harm, initial encounter; I89.0 Lymphedema, not elsewhere classified; E66.01 Morbid (severe) obesity due to excess calories; Z68.39 Body mass index [BMI] 39.0-39.9, adult; E11.52 Type 2 diabetes mellitus with diabetic peripheral angiopathy with gangrene | CPT/HCPCS: 11042 ==

== ENCOUNTER → 2022-11-22 | Outpatient (CLI) | payer MEDICARE, MEDICAID | LOC: WOUNDCARE 10:33 | PROVIDERS: ATTEND Family Medicine | DX: E11.621 Type 2 diabetes mellitus with foot ulcer (principal); L97.422 Non-pressure chronic ulcer of left heel and midfoot with fat layer exposed; E11.65 Type 2 diabetes mellitus with hyperglycemia; E11.40 Type 2 diabetes mellitus with diabetic neuropathy, unspecified; I70.244 Atherosclerosis of native arteries of left leg with ulceration of heel and midfoot; T65.292A Toxic effect of other tobacco and nicotine, intentional self-harm, initial encounter; I89.0 Lymphedema, not elsewhere classified; E66.01 Morbid (severe) obesity due to excess calories; Z68.39 Body mass index [BMI] 39.0-39.9, adult; E11.52 Type 2 diabetes mellitus with diabetic peripheral angiopathy with gangrene | CPT/HCPCS: 11042 ==

== ENCOUNTER → 2022-11-29 | Outpatient (CLI) | payer MEDICARE, MEDICAID | LOC: WOUNDCARE 11:03 | PROVIDERS: ATTEND Family Medicine | DX: E11.621 Type 2 diabetes mellitus with foot ulcer (principal); L97.422 Non-pressure chronic ulcer of left heel and midfoot with fat layer exposed; E11.65 Type 2 diabetes mellitus with hyperglycemia; E11.40 Type 2 diabetes mellitus with diabetic neuropathy, unspecified; I70.244 Atherosclerosis of native arteries of left leg with ulceration of heel and midfoot; I89.0 Lymphedema, not elsewhere classified; E66.01 Morbid (severe) obesity due to excess calories; T65.292A Toxic effect of other tobacco and nicotine, intentional self-harm, initial encounter; E11.52 Type 2 diabetes mellitus with diabetic peripheral angiopathy with gangrene; Z68.39 Body mass index [BMI] 39.0-39.9, adult | CPT/HCPCS: 11042 ==

== ENCOUNTER → 2022-12-06 | Outpatient (CLI) | payer MEDICARE, MEDICAID | LOC: WOUNDCARE 11:00 | PROVIDERS: ATTEND Family Medicine | DX: E11.621 Type 2 diabetes mellitus with foot ulcer (principal); L97.422 Non-pressure chronic ulcer of left heel and midfoot with fat layer exposed; E11.65 Type 2 diabetes mellitus with hyperglycemia; E11.40 Type 2 diabetes mellitus with diabetic neuropathy, unspecified; I89.0 Lymphedema, not elsewhere classified; E66.01 Morbid (severe) obesity due to excess calories; I70.244 Atherosclerosis of native arteries of left leg with ulceration of heel and midfoot; T65.292A Toxic effect of other tobacco and nicotine, intentional self-harm, initial encounter; E11.52 Type 2 diabetes mellitus with diabetic peripheral angiopathy with gangrene; Z68.39 Body mass index [BMI] 39.0-39.9, adult | CPT/HCPCS: 11042 ==

== ENCOUNTER → 2022-12-13 | Outpatient (CLI) | payer MEDICARE, MEDICAID | LOC: WOUNDCARE 10:57 | PROVIDERS: ATTEND Family Medicine | DX: L97.422 Non-pressure chronic ulcer of left heel and midfoot with fat layer exposed (principal); E11.621 Type 2 diabetes mellitus with foot ulcer; E11.65 Type 2 diabetes mellitus with hyperglycemia; E11.40 Type 2 diabetes mellitus with diabetic neuropathy, unspecified; I70.244 Atherosclerosis of native arteries of left leg with ulceration of heel and midfoot; T65.222A Toxic effect of tobacco cigarettes, intentional self-harm, initial encounter; I89.0 Lymphedema, not elsewhere classified; E66.01 Morbid (severe) obesity due to excess calories; Z68.39 Body mass index [BMI] 39.0-39.9, adult; E11.52 Type 2 diabetes mellitus with diabetic peripheral angiopathy with gangrene; I96 Gangrene, not elsewhere classified | CPT/HCPCS: 11042; 87070; 87205 ==

== ENCOUNTER → 2022-12-20 | Outpatient (CLI) | payer MEDICARE, MEDICAID ==
[~2022-12-20] MED LIST changes: -ROPI1TAB PO; +ROPI1TAB46 PO
== END ==
LOC: WOUNDCARE 11:10
PROVIDERS: ATTEND Family Medicine
DX: E11.621 Type 2 diabetes mellitus with foot ulcer (principal); L97.422 Non-pressure chronic ulcer of left heel and midfoot with fat layer exposed; E11.65 Type 2 diabetes mellitus with hyperglycemia; E11.40 Type 2 diabetes mellitus with diabetic neuropathy, unspecified; I70.244 Atherosclerosis of native arteries of left leg with ulceration of heel and midfoot; T65.292A Toxic effect of other tobacco and nicotine, intentional self-harm, initial encounter; I89.0 Lymphedema, not elsewhere classified; E66.01 Morbid (severe) obesity due to excess calories; Z68.39 Body mass index [BMI] 39.0-39.9, adult; E11.52 Type 2 diabetes mellitus with diabetic peripheral angiopathy with gangrene; B96.5 Pseudomonas (aeruginosa) (mallei) (pseudomallei) as the cause of diseases classified elsewhere
CPT/HCPCS: 11042

== ENCOUNTER → 2022-12-27 | Outpatient (CLI) | payer MEDICARE, MEDICAID | LOC: WOUNDCARE 10:58 | PROVIDERS: ATTEND Family Medicine | DX: E11.621 Type 2 diabetes mellitus with foot ulcer (principal); L97.422 Non-pressure chronic ulcer of left heel and midfoot with fat layer exposed; E11.65 Type 2 diabetes mellitus with hyperglycemia; E11.40 Type 2 diabetes mellitus with diabetic neuropathy, unspecified; I70.244 Atherosclerosis of native arteries of left leg with ulceration of heel and midfoot; T65.292A Toxic effect of other tobacco and nicotine, intentional self-harm, initial encounter; I89.0 Lymphedema, not elsewhere classified; E66.01 Morbid (severe) obesity due to excess calories; B96.5 Pseudomonas (aeruginosa) (mallei) (pseudomallei) as the cause of diseases classified elsewhere; E11.52 Type 2 diabetes mellitus with diabetic peripheral angiopathy with gangrene; Z68.39 Body mass index [BMI] 39.0-39.9, adult | CPT/HCPCS: 11042 ==

== ENCOUNTER → 2023-01-03 | Outpatient (CLI) | payer MEDICARE, MEDICAID ==
[2023-01-03 12:27] LABS: CALCIUM 8.5 MG/DL (8.5-10.1); CREATININE SERUM 0.92 MG/DL (0.60-1.30); POTASSIUM 4.4 MMOL/L (3.6-5.0)
== END ==
LOC: WOUNDCARE 11:00
PROVIDERS: ATTEND Family Medicine
DX: E11.621 Type 2 diabetes mellitus with foot ulcer (principal); E11.65 Type 2 diabetes mellitus with hyperglycemia; E11.40 Type 2 diabetes mellitus with diabetic neuropathy, unspecified; E11.52 Type 2 diabetes mellitus with diabetic peripheral angiopathy with gangrene; I70.244 Atherosclerosis of native arteries of left leg with ulceration of heel and midfoot; L97.422 Non-pressure chronic ulcer of left heel and midfoot with fat layer exposed; T65.292A Toxic effect of other tobacco and nicotine, intentional self-harm, initial encounter; I89.0 Lymphedema, not elsewhere classified; E66.01 Morbid (severe) obesity due to excess calories; Z68.39 Body mass index [BMI] 39.0-39.9, adult
CPT/HCPCS: 11042; 36415; 80048

== ENCOUNTER → 2023-01-04 | Outpatient (CLI) | payer MEDICARE, MEDICAID ==
[~2023-01-04] MED LIST changes: +GADOTERATE 0.5 MMOL/ML (CLARISCAN) 20 ML VIAL IV ONE; +GADOTERATE 0.5 MMOL/ML (CLARISCAN) 5 ML VIAL IV ONE
--- NOTE | 2023-01-04 20:15 | Diagnostic Imaging Report ---
PROCEDURE: MRI left lower extremity with and without contrast. TECHNIQUE: Multiplanar, multisequence pre and post contrast-enhanced MRI of the left lower extremity was accomplished. INDICATION: Left heel ulcer. COMPARISON: MRI ankle of 07/14/2022. FINDINGS: Ulcer along the dorsal aspect of the calcaneus remains similar in size and is shallow. There is subcutaneous tissue between the base of the ulcer and the underlying calcaneal fat pad. The area of hypoenhancement in the subcutaneous tissues posterior to the calcaneus has decreased in size now measuring approximately 2.9 x 0.9 cm (previously 6.4 x 2.0 cm). No marrow changes within the calcaneus to indicate underlying osteomyelitis. Additionally, osseous structures and the remainder of the hindfoot and midfoot have no feature of osteomyelitis. Mild degenerative changes in the tibiotalar joint are similar. Denervation edema and atrophy is noted within the intrinsic muscles of the foot and likely sequelae of long-standing diabetes. No features of infectious tenosynovitis. No septic arthritis. Mild subcutaneous edema around the ankle. IMPRESSION: 1. Shallow ulcer along the dorsal aspect of the heel fat pad is without underlying osteomyelitis in the calcaneus. 2. The area of suspected devascularized/devitalized soft tissue has decreased compared to prior examination. Dictated by: Dictated on workstation # [id number]
== END ==
LOC: RAD 13:21
PROVIDERS: ATTEND Family Medicine
DX: L97.429 Non-pressure chronic ulcer of left heel and midfoot with unspecified severity (principal)
CPT/HCPCS: 73720

== ENCOUNTER → 2023-01-24 | Outpatient (CLI) | payer MEDICARE, MEDICAID ==
[~2023-01-24] MED LIST changes: -GADOTERATE 0.5 MMOL/ML (CLARISCAN) 20 ML VIAL IV ONE; -GADOTERATE 0.5 MMOL/ML (CLARISCAN) 5 ML VIAL IV ONE; -PREG150C46 PO; +PREG150C47 PO
== END ==
LOC: WOUNDCARE 11:00
PROVIDERS: ATTEND Family Medicine
DX: L97.412 Non-pressure chronic ulcer of right heel and midfoot with fat layer exposed (principal); E11.621 Type 2 diabetes mellitus with foot ulcer; E11.65 Type 2 diabetes mellitus with hyperglycemia; E11.40 Type 2 diabetes mellitus with diabetic neuropathy, unspecified; I70.244 Atherosclerosis of native arteries of left leg with ulceration of heel and midfoot; T65.292A Toxic effect of other tobacco and nicotine, intentional self-harm, initial encounter; I89.0 Lymphedema, not elsewhere classified; E66.01 Morbid (severe) obesity due to excess calories; Z68.39 Body mass index [BMI] 39.0-39.9, adult; E11.52 Type 2 diabetes mellitus with diabetic peripheral angiopathy with gangrene; I96 Gangrene, not elsewhere classified
CPT/HCPCS: 11042; 87070; 87205

== ENCOUNTER → 2023-02-07 | Outpatient (CLI) | payer MEDICARE, MEDICAID | LOC: WOUNDCARE 11:00 | PROVIDERS: ATTEND Family Medicine | DX: E11.621 Type 2 diabetes mellitus with foot ulcer (principal); E11.65 Type 2 diabetes mellitus with hyperglycemia; E11.40 Type 2 diabetes mellitus with diabetic neuropathy, unspecified; E11.52 Type 2 diabetes mellitus with diabetic peripheral angiopathy with gangrene; I70.244 Atherosclerosis of native arteries of left leg with ulceration of heel and midfoot; L97.422 Non-pressure chronic ulcer of left heel and midfoot with fat layer exposed; I89.0 Lymphedema, not elsewhere classified; T65.292A Toxic effect of other tobacco and nicotine, intentional self-harm, initial encounter; E66.01 Morbid (severe) obesity due to excess calories; Z68.39 Body mass index [BMI] 39.0-39.9, adult | CPT/HCPCS: 11042 ==

== ENCOUNTER → 2023-02-21 | Outpatient (CLI) | payer MEDICARE, MEDICAID ==
[~2023-02-21] MED LIST changes: -GLIP5TAB13 PO; +GLIP5TAB23 PO
== END ==
LOC: WOUNDCARE 11:02
PROVIDERS: ATTEND Family Medicine
DX: E11.621 Type 2 diabetes mellitus with foot ulcer (principal); E11.52 Type 2 diabetes mellitus with diabetic peripheral angiopathy with gangrene; E11.65 Type 2 diabetes mellitus with hyperglycemia; L97.422 Non-pressure chronic ulcer of left heel and midfoot with fat layer exposed; E11.40 Type 2 diabetes mellitus with diabetic neuropathy, unspecified; I70.244 Atherosclerosis of native arteries of left leg with ulceration of heel and midfoot; T65.292A Toxic effect of other tobacco and nicotine, intentional self-harm, initial encounter; I89.0 Lymphedema, not elsewhere classified; E66.01 Morbid (severe) obesity due to excess calories; Z68.39 Body mass index [BMI] 39.0-39.9, adult
CPT/HCPCS: 11042; 87070; 87205

== ENCOUNTER → 2023-02-28 | Outpatient (CLI) | payer MEDICARE, MEDICAID | LOC: WOUNDCARE 11:02 | PROVIDERS: ATTEND Family Medicine | DX: L97.422 Non-pressure chronic ulcer of left heel and midfoot with fat layer exposed (principal); E11.621 Type 2 diabetes mellitus with foot ulcer; E11.65 Type 2 diabetes mellitus with hyperglycemia; E11.40 Type 2 diabetes mellitus with diabetic neuropathy, unspecified; I70.244 Atherosclerosis of native arteries of left leg with ulceration of heel and midfoot; I89.0 Lymphedema, not elsewhere classified; E66.01 Morbid (severe) obesity due to excess calories; Z68.39 Body mass index [BMI] 39.0-39.9, adult; E11.52 Type 2 diabetes mellitus with diabetic peripheral angiopathy with gangrene; I96 Gangrene, not elsewhere classified; T65.292A Toxic effect of other tobacco and nicotine, intentional self-harm, initial encounter | CPT/HCPCS: 11042 ==

== ENCOUNTER → 2023-03-07 | Outpatient (CLI) | payer MEDICARE, MEDICAID | LOC: WOUNDCARE 11:02 | PROVIDERS: ATTEND Family Medicine | DX: E11.621 Type 2 diabetes mellitus with foot ulcer (principal); E11.65 Type 2 diabetes mellitus with hyperglycemia; E11.52 Type 2 diabetes mellitus with diabetic peripheral angiopathy with gangrene; E11.40 Type 2 diabetes mellitus with diabetic neuropathy, unspecified; I70.244 Atherosclerosis of native arteries of left leg with ulceration of heel and midfoot; L97.422 Non-pressure chronic ulcer of left heel and midfoot with fat layer exposed; T65.292A Toxic effect of other tobacco and nicotine, intentional self-harm, initial encounter; I89.0 Lymphedema, not elsewhere classified; E66.01 Morbid (severe) obesity due to excess calories; Z68.39 Body mass index [BMI] 39.0-39.9, adult | CPT/HCPCS: 99213 ==

== ENCOUNTER → 2023-03-14 | Outpatient (CLI) | payer MEDICARE, MEDICAID ==
[2023-03-14 11:47] LABS: BASOPHILS % (AUTO) 0 % (0-10); EOSINOPHILS # (AUTO) 0.2 10^3/uL (0.0-0.3); EOSINOPHILS % (AUTO) 2 % (0-10); HEMATOCRIT 24 % (40-54); LYMPHOCYTES # (AUTO) 2.2 10^3/uL (1.0-4.0); LYMPHOCYTES % (AUTO) 20 % (12-44); MEAN CORPUSCULAR HEMOGLOBIN 21 pg (25-34); MEAN CORPUSCULAR HGB CONC 27 g/dL (32-36); MEAN CORPUSCULAR VOLUME 76 fL (80-99); MEAN PLATELET VOLUME 10.8 fL (9.0-12.2); MONOCYTES # (AUTO) 0.8 10^3/uL (0.0-1.0); MONOCYTES % (AUTO) 7 % (0-12); NEUTROPHILS # (AUTO) 7.6 10^3/uL (1.8-7.8); NEUTROPHILS % (AUTO) 70 % (42-75); PLATELET COUNT 266 10^3/uL (130-400); WHITE BLOOD COUNT 10.9 10^3/uL (4.3-11.0)
[2023-03-14 12:00] LABS: HEMOGLOBIN 6.6 g/dL (13.3-17.7)
[2023-03-14 12:04] LABS: ALBUMIN 3.5 GM/DL (3.2-4.5); BILIRUBIN,TOTAL 0.3 MG/DL (0.1-1.0); CALCIUM 8.3 MG/DL (8.5-10.1); CREATININE SERUM 0.97 MG/DL (0.60-1.30); POTASSIUM 4.6 MMOL/L (3.6-5.0); TOTAL PROTEIN 6.7 GM/DL (6.4-8.2)
[2023-03-14 12:57] LABS: ERYTHROCYTE SEDIMENTATION RATE 41 MM/HR (0-30)
== END ==
LOC: WOUNDCARE 11:02
PROVIDERS: ATTEND Family Medicine
DX: E11.621 Type 2 diabetes mellitus with foot ulcer (principal); E11.65 Type 2 diabetes mellitus with hyperglycemia; E11.40 Type 2 diabetes mellitus with diabetic neuropathy, unspecified; E11.52 Type 2 diabetes mellitus with diabetic peripheral angiopathy with gangrene; I70.244 Atherosclerosis of native arteries of left leg with ulceration of heel and midfoot; L97.422 Non-pressure chronic ulcer of left heel and midfoot with fat layer exposed; I89.0 Lymphedema, not elsewhere classified; T65.292A Toxic effect of other tobacco and nicotine, intentional self-harm, initial encounter; E66.01 Morbid (severe) obesity due to excess calories; Z68.29 Body mass index [BMI] 29.0-29.9, adult
CPT/HCPCS: 36415; 80053; 85025; 85652; 86141; 99213

== ENCOUNTER → 2023-03-15 | Outpatient (CLI) | payer MEDICARE, MEDICAID ==
[2023-03-15 17:01] LABS: HEMOGLOBIN 7.6 g/dL (13.3-17.7)
== END ==
LOC: SDC 16:34 → LAB 16:34
PROVIDERS: ATTEND Pediatrics
DX: D64.9 Anemia, unspecified (principal)
CPT/HCPCS: 36415; 85014; 85018; 86850; 86900; 86901; 86920

== ENCOUNTER → 2023-03-21 | Outpatient (CLI) | payer MEDICARE, MEDICAID | LOC: WOUNDCARE 11:04 | PROVIDERS: ATTEND Family Medicine | DX: E11.621 Type 2 diabetes mellitus with foot ulcer (principal); I70.244 Atherosclerosis of native arteries of left leg with ulceration of heel and midfoot; E11.65 Type 2 diabetes mellitus with hyperglycemia; E11.40 Type 2 diabetes mellitus with diabetic neuropathy, unspecified; E11.52 Type 2 diabetes mellitus with diabetic peripheral angiopathy with gangrene; L97.422 Non-pressure chronic ulcer of left heel and midfoot with fat layer exposed; T65.292A Toxic effect of other tobacco and nicotine, intentional self-harm, initial encounter; I89.0 Lymphedema, not elsewhere classified; E66.01 Morbid (severe) obesity due to excess calories; Z68.39 Body mass index [BMI] 39.0-39.9, adult; Z91.118 Patient's noncompliance with dietary regimen for other reason; Z91.198 Patient's noncompliance with other medical treatment and regimen for other reason | CPT/HCPCS: 11042; 11045; 87070; 87205; 97597 ==